=== PATIENT | female | born 1970 | race Caucasian/White ===

== ENCOUNTER 2024-11-03 13:40 | Outpatient (REF) | payer OTHER, SELFPAY ==
--- NOTE | ~2024-11-03 | XR_ITS ---
EXAMINATION: XR FOOT 3 OR MORE VIEWS LEFT HISTORY: M79.672 - Pain in left foot COMPARISON: Comparison is made to a prior outside images from [facility] dated 10/18/2024. FINDINGS: Three views of the left foot are submitted. Osseous mineralization is normal. Again seen is a nondisplaced intra-articular fracture of the base of the 5th metatarsal. No additional fracture is seen. There is no dislocation. There is moderate osteoarthritis and mild hallux valgus deformity of the 1st MTP joint. The soft tissues are unremarkable. XR/XR foot LT min 3V IMPRESSION: Nondisplaced intra-articular fracture of the base of the 5th metatarsal without change. Electronically signed by: Lucio Reyna MD 11/06/2024 07:22 AM EDT
== END 2024-11-03 13:41 | disposition home or self-care (01) ==
LOC: HO.HOSX 13:40
PROVIDERS: PCP Internal Medicine
DX: M79.672 Pain in left foot (principal); S92.352A Displaced fracture of fifth metatarsal bone, left foot, initial encounter for closed fracture; W22.8XXA Striking against or struck by other objects, initial encounter; Y93.H2 Activity, gardening and landscaping; Y92.007 Garden or yard of unspecified non-institutional (private) residence as the place of occurrence of the external cause; Y99.9 Unspecified external cause status; M65.4 Radial styloid tenosynovitis [de Quervain]
CPT/HCPCS: 73630; 99202

== ENCOUNTER 2024-11-03 13:40 | Outpatient (AMB) | payer OTHER, SELFPAY ==
--- OUTSIDE RECORDS SUMMARY | 2024-11-03 13:52 | XMS_ITS | Clinical Summary ---
Author Organization [facility] [address] [facility] Building Address [address] [place] [address] Phone Care Team Providers Care Avionics Integration Engineer Name Role Phone Rohit Mosley MD Primary Care Provider [phone] Allergies Active Allergy Reactions Criticality Noted Date Comments Sulfamethoxazole-Trimethoprim Hives 2023 Medications clotrimazole-b etamethasone (LOTRISONE) 1-0.05 % cream Apply small amout to rash twice a day Active cetirizine (ZyrTEC) 10 mg tablet Take 1 tablet (10 mg total) by mouth 1 (one) time each day. Active estradioL (ESTRACE) 0.01 % (0.1 mg/gram) vaginal cream Apply 1G PV nightly for 2 weeks and then 1-2 nights a week thereafter Active aspirin 81 mg EC tablet Take 1 tablet (81 mg total) by mouth 1 (one) time each day. Active PARoxetine (PAXIL) 10 mg tablet Take 1 tablet (10 mg total) by mouth 1 (one) time each day in the morning. Take 1 Tablet by mouth every morning for 180 days. - Oral 90 tablet 1 5 Active levothyroxine (SYNTHROID, LEVOTHROID) 100 mcg tablet Take 1 tablet (100 mcg total) by mouth 1 (one) time each day. 90 tablet 1 5 Active amLODIPine (NORVASC) 5 mg tablet TAKE 1 TABLET BY MOUTH EVERY DAY 90 tablet 5 Active fluticasone propionate (FLONASE) 50 mcg/actuation nasal spray Administer 2 sprays into each nostril 1 (one) time each day. Shake gently. Before first use, prime pump. After use, clean tip and replace cap. 16 g 5 5 10/04/19 26 Active atorvastatin (LIPITOR) 40 mg tablet Take 1 tablet (40 mg total) by mouth 1 (one) time each day. 90 tablet 1 5 Active atorvastatin (LIPITOR) 40 mg tablet Take 1 tablet (40 mg total) by mouth 1 (one) time each day. 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 10/03/2024 White matter lesion of central nervous system 03/14/20 24 10/03/2024 Tubular adenoma of colon 03/14/2024 Encounters Date Type Department Care Team Description 10/19/2024 1:14 PM EDT - 10/19/2024 11:59 PM EDT [facility] [address] [place], [place] [phone] Bilateral carotid artery stenosis Discharge Disposition: Home or Self Care 10/09/2024 12:10 PM EDT Lab Draw Station - [address] Mixed hyperlipidemia (Primary Dx); Screening for metabolic disorder; Jayda's disease 10/03/2024 11:15 AM EDT Office Visit Internal Medicine - [address] [phone] Daphne Duff NP Primary hypertension (Primary Dx); Other chronic sinusitis; Chronic seasonal allergic rhinitis due to pollen; Bilateral carotid artery stenosis; Chronic constipation; Tubular adenoma of colon; Thyroid nodule; Jayda's disease; Mixed hyperlipidemia; Anxiety; Screening for metabolic disorder; Chronic nonintractable headache, unspecified headache type from Last 3 Months Immunizations Name Administration Dates Next Due Influenza Quadravalent, MDCK , 0.5ml, preservative free (Flucelvax) 6mo and older 05/27/2023,02/08/2019 Influenza Quadravalent, MDCK , 0.5ml, with preservative (Flucelvax) 6mo and older 03/22/2017 Influenza trivalent, with pr eservative (Fluzone; Afluria) 6mo and older 03/23/2022 Influenza, Unspecified 05/19/2021 Tdap Tetanus diptheria acell ular pertussis (Boostrix; Adacel) 7yo and older 05/18/2016 Surgical History Surgery Date Site/Laterality Comments ENDOMETRIAL ABLATION 04/2016 PROCEDURE: NC ENDOMETRIAL ABLTJ THERMAL W/O HYSTEROSCOPIC GUID COLONOSCOPY 2018 PROCEDURE: HISTORICAL COLONOSCOPY Medical History Medical History Date Comments 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 DX:Jayda 's disease Anemia DX:Anemia Chronic sinusitis 10/05/2016 DX:Chronic sin usitis HLD (hyperlipidemia) 09/06/2017 DX:HLD (hyp erlipidemia) 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 12/22/2017 DX:White matter lesion of ce ntral nervous system Chronic constipation 09/13/2018 DX:Chronic constipation; COMMENT: Since her 30's Tubular adenoma of colon 02/08/2019 DX:Tubu lar adenoma of colon Hypertension 03/13/2024 DX:Hypertension Family History Medical History Relation Name Comments Breast cancer Aunt ma No Known Problems Brother Hypertension Father arthritis, psor iasis Colon cancer Maternal Grandfather No Known Problems Maternal Grandmother No Known Problems Mother No Known Problems Other No Known Problems Paternal Grandfather No Known Problems Paternal Grandmother No Known Problems Sister No Known Problems Uncle Blindness Neg Hx Glaucoma, Catar act, macular degeneration, strabismus Relation Name Status Comments Aunt ma Alive Brother Alive Father Alive Maternal Grandfather Maternal Grandmother Mother Alive Other Paternal Grandfather Paternal Grandmother Sister Uncle Social History Tobacco Use Types Packs/Day Years Used Date Smoking Tobacco: Never Smokeless Tobacco: Never Tobacco Cessation:Counseling Given: Not Answered Alcohol Use Standard Drinks/Week Comments No 0 (1 standard drink = 0.6 oz pur e alcohol) Housing Instability Answer Date Recorde d Are you worried that in the next 2 months you may not have stable housing? No 04/10/2024 Food Access & Nutrition Answer Date Rec orded Do you have access to a vari ety of food including fruits and vegetables? Yes 04/10/2024 Health Literacy Answer Date Recorded How often do you need to hav e someone help you when you read instructions, pamphlets, or other written material from your doctor or pharmacy? Never 04/10/2024 Caregiver: How often do you need to have someone help you when you read instructions, pamphlets, or other written material from your doctor or pharmacy? Not on file 04/10/2024 Financial Risk Answer Date Recorded How hard is it for you to pa y for the very basics like food, housing, medical care, and air conditioning / heating? Not very hard 04/10/2024 Transportation Answer Date Recorded Has the lack of transportati on kept you from meetings, work, or from getting things needed for daily living? No Has the lack of transportati on kept you from medical appointments or from getting medications? No 04/10/2024 Social Isolation Answer Date Recorded How often do you feel lonely or isolated from th ose around you? Never 04/10/2024 Food Risk Answer Date Recorded Within the past 12 months we worried whether our food would run out before we got money to buy more. Never true 04/10/2024 Within the past 12 months th e food we bought just didn't last and we didn't have money to get more. Never true 04/10/2024 Dependent Care Answer Date Recorded Do you need help finding or paying for care for your loved ones. For example, salesperson children's shoes or elderly care for an older adult? No 04/10/2024 Education Answer Date Recorded Do you think completing more education or training, like finishing a GED, going to college, or learning a trade, would be helpful for you? No 04/10/2024 Employment and Income Answer Date Recor ded During the last four weeks, have you been actively looking for work? No 04/10/2024 Living Situation Answer Date Recorded What is your living situation? 1 06/10/2023 Comments No Sex and Gender Information Value Date Recorded Sex Assigned at Not on file Legal Sex Female 8:15 AM EST Gender Identity Not on file Sexual Orientation Not on file Obstetrics History Last Filed Vital Signs Vital Sign Reading Time Taken Comments Blood Pressure 125/81 10/03/2024 11:03 AM EDT auto cuff Pulse 63 10/03/2024 11:03 AM EDT auto cuff Temperature 36.8 ??C (98.3 ??F) 10/03/2024 1 1:03 AM EDT Respiratory Rate - - Oxygen Saturation 97% 12/24/2023 1:0 0 PM EDT at rest, room air Inhaled Oxygen Concentration - - Weight 78.8 kg (173 lb 12.8 oz) 10/03/2024 11:03 AM EDT Height 168.9 cm (5' 6.5 ) 04/13/2024 9: 49 AM EST Body Mass Index 27.63 04/13/2024 9:49 AM EST Plan of Treatment Upcoming Encounters Date Type Department Care Team (Late st Contact Info) Description 11/10/2024 2:30 PM EDT Appointment Radiology Department - [address] [phone] 11/17/2024 11:30 AM EDT Appointment Radiology Department - [address] [phone] 11/21/2024 4:00 PM EDT Consult Vascular Surgery - [place] [address] [phone] Helga Sprague PA [address] [address] 01/12/2025 11:00 AM EDT Office Visit Endocrinology - [address] [phone] Althea Laura PA [address] [place] [phone] 04/09/2025 1:00 PM EST Office Visit Internal Medicine - [address] [place] [phone] Daphne Duff, CONTROL CHEMIST [address] [place] [address] Health Maintenance Due Date Last Done Comments Hepatitis B Vaccines (1 of 3 - 19+ 3-dose series) 1987 Pneumococcal Vaccine: 50+ Years (1 of 1 - PCV) 2018 Zoster Vaccines (1 of 2) 2018 Colorectal Cancer Screening: Colonoscopy 05/16/2022 HIV Screening 05/16/2022 COVID-19 Vaccine ( season) 2024 05/19/2021, 10/04/2020, 09/13/2020 Influenza Vaccine (Season Ended) 2025 05/27/2023, 03/23/2022, 05/19/2021, Additional history exists Social Influencers of Health Screening 04/10/2025 04/10/2024 Breast Cancer Screening 07/02/2025 07/02/19 24, 05/07/2022, 03/17/2021, Additional history exists Depression Screening 10/02/2025 10/02/2024 Hypertension/CHF/CAD Annual BMP Blood Test 10/09/2025 10/09/2024, 04/13/2024, 06/14/2023 Cervical Cancer Screening: HPV 01/28/2026 01/28/2021 DTaP,Tdap,and Td Vaccines (2 - Td or Tdap) 05/18/2026 05/18/2016 Cholesterol Screening (Lipid Panel) 10/09/2029 10/09/2024, 06/14/2023 Hepatitis C Screening Completed 02/16/2022 HIB Vaccines Aged Out No longer eligi ble based on patient's age to complete this topic HPV Vaccines Aged Out No longer eligi ble based on patient's age to complete this topic Hepatitis A Vaccines Aged Out No long er eligible based on patient's age to complete this topic IPV Vaccines Aged Out No longer eligi ble based on patient's age to complete this topic MMR Vaccines Aged Out No longer eligi ble based on patient's age to complete this topic Meningococcal ACWY Vaccine Aged Out N o longer eligible based on patient's age to complete this topic Meningococcal B Vaccine Aged Out No l onger eligible based on patient's age to complete this topic Pneumococcal Vaccine: Pediatrics (0 to 5 Years) and At-Risk Patients (6 to 64 Years) Aged Out No longer eligible based on patient's age to complete this topic RSV Immunization Patients Under 20 months Aged Out No longer eligible based on patient's age to complete this topic Varicella Vaccines Aged Out No longer eligible based on patient's age to complete this topic Procedures Procedure Name Priority Date/Time Associated Diagnosis Comments VAS US DUPLEX CAROTID BILATERAL Routine 10/19/2024 2:17 PM EDT Bilateral carotid artery stenosis CBC WITH AUTO DIFFERENTIAL Routine 10/09/2024 12:14 PM EDT Screening for metabolic disorder COMPREHENSIVE METABOLIC PANEL Routine 10/09/2024 12:14 PM EDT Screening for metabolic disorder THYROID STIMULATING HORMONE WITH REFLEX TO FREE T4 AND FREE T3 Routine 10/09/2024 12:14 PM EDT Jayda's disease HEMOGLOBIN A1C Routine 10/09/2024 12:14 PM EDT Screening for metabolic disorder CBC AND DIFFERENTIAL Routine 10/09/2024 12:14 PM EDT Screening for metabolic disorder LIPID PANEL WITH REFLEX TO DIRECT LDL Routine 10/09/2024 12:14 PM EDT Mixed hyperlipidemia DIAGNOSTIC MAMMOGRAPHY INCLUDING CAD BILATERAL Routine 07/02/2023 11:04 AM EST Changes in skin texture HM HEPATITIS C SCREENING Routine 02/16/2022 HM HPV Routine 01/28/2021 from Last 3 Months or Most Recently Relevant to Health Maintenance Results * Vascular US duplex carotid bilateral (10/19/2024 2:17 PM EDT) Anatomical Region Laterality Modality Vascular, Abdomen Ultrasound 10/19/2024 5:42 PM EDT Impressions 10/19/2024 5:52 PM EDT No evidence of hemodynamically significant internal carotid stenoses. ??No significant change compared with 03/24/2024. ??Patent vertebral arteries. POS - [id number] -------- FINAL REPORT -------- Dictated By: Pao Jackson Dictated Date: 10/19/2024 17:42 ET Assigned Physician: Pao Jackson Reviewed and Electronically Signed By: Pao Jackson Signed Date: 10/19/2024 17:52 ET Workstation ID: [id number] Transcribed By: Self Edit Transcribed Date: 10/19/2024 17:42 ET Narrative 10/19/2024 5:52 PM EDT EXAM: Ultrasound extracranial arteries. HISTORY: ??Follow-up bilateral carotid stenoses. COMPARISON: 03/24/2024 CAROTID ULTRASOUND FINDINGS: RIGHT: Peak external carotid artery: 165 cm/sec Peak vertebral: 65 cm/sec and antegrade Carotid artery morphology: No significant change in heterogeneous atherosclerotic plaques in the carotid bulb and proximal ICA. ??Degree of luminal narrowing is less than 50%. Peak systolic and diastolic velocity common carotid artery: 94/24 cm/sec Peak systolic and diastolic velocity internal carotid artery: 98/41 cm/sec compared with 89/42 cm/s previously Normal ICA/CCA peak systolic ratio. LEFT: Peak external carotid artery: 82 cm/sec Peak vertebral: 71 cm/sec and antegrade Carotid artery morphology: No significant change in heterogeneous plaque in the carotid bulb with shadowing which limits assessment of color Doppler flow. Peak systolic and diastolic velocity common carotid artery: 88/28 cm/sec Peak systolic and diastolic velocity internal carotid artery: 122/38 cm/sec compared with 123/38 cm/s previously Normal ICA/CCA peak systolic ratio. Any stenosis measurement is relative to the distal ICA diameters. Procedure Note Pao Jackson MD - 10/19/2024 EXAM: Ultrasound extracranial arteries. HISTORY: Follow-up bilateral carotid stenoses. COMPARISON: 03/24/2024 CAROTID ULTRASOUND FINDINGS: RIGHT: Peak external carotid artery: 165 cm/sec Peak vertebral: 65 cm/sec and antegrade Carotid artery morphology: No significant change in heterogeneousatherosclerotic plaques in the carotid bulb and proximal ICA. Degree ofluminal narrowing is less than 50%. Peak systolic and diastolic velocity common carotid artery: 94/24 cm/sec Peak systolic and diastolic velocity internal carotid artery: 98/41 cm/seccompared with 89/42 cm/s previously Normal ICA/CCA peak systolic ratio. LEFT: Peak external carotid artery: 82 cm/sec Peak vertebral: 71 cm/sec and antegrade Carotid artery morphology: No significant change in heterogeneous plaquein the carotid bulb with shadowing which limits assessment of colorDoppler flow. Peak systolic and diastolic velocity common carotid artery: 88/28 cm/sec Peak systolic and diastolic velocity internal carotid artery: 122/38cm/sec compared with 123/38 cm/s previously Normal ICA/CCA peak systolic ratio. Any stenosis measurement is relative to the distal ICA diameters. IMPRESSION: No evidence of hemodynamically significant internal carotid stenoses. Nosignificant change compared with 03/24/2024. Patent vertebral arteries. POS - [id number] -------- FINAL REPORT -------- Dictated By: Pao Jackson Dictated Date: 10/19/2024 17:42 ET Assigned Physician: Pao Jackson Reviewed and Electronically Signed By: Pao Jackson Signed Date: 10/19/2024 17:52 ET Workstation ID: [id number] Transcribed By: Self Edit Transcribed Date: 10/19/2024 17:42 ET us Daphne Love NP CV VASCULAR PROCEDURES Final Result * Thyroid stimulating hormone with reflex to free t4 and free t3 (10/09/2024 12:14 PM EDT) TSH 1.43 0.40 - 4.00 mcIU/mL LAB CHEMISTRY METHOD 10/09/2024 7:[address] [facility] Blood Venous blood specimen / Unknown Venipuncture / Unknown 10/09/2024 12:14 PM EDT 10/09/2024 12:14 PM EDT us Daphne Love NP LAB BLOOD ORDERABLES Final R esult [facility] [address] [place] [address], [place] [phone] * Lipid panel with reflex to direct LDL (10/09/2024 12:14 PM EDT) Cholesterol 132 0 - 200 mg/dL LAB CHEMISTRY METHOD 10/09/2024 6:[address] [facility] Triglycerides 79 0 - 150 mg/dL LAB CHEMISTRY METHOD 10/09/2024 6:[address] [facility] HDL 52 >=40 mg/dL LAB CHEMISTRY METHOD 10/09/2024 6:[address] [facility] LDL Calculated 64 0 - 100 mg/dL LAB CHEMISTRY METHOD 10/09/2024 6:[address] [facility] VLDL Cholesterol Darron 15.8 mg/dL LAB CHEMISTRY METHOD 10/09/2024 6:[address] [facility] Non HDL Chol. (LDL+VLDL) 80 <145 mg/dL LAB CHEMISTRY METHOD 10/09/2024 6:[address] [facility] Chol/HDL Ratio 2.5 0.0 - 4.4 LAB CHEMISTRY METHOD 10/09/2024 6:[address] [facility] Blood Venous blood specimen / Unknown Venipuncture / Unknown 10/09/2024 12:14 PM EDT 10/09/2024 12:14 PM EDT us Daphne Love CONTROL CHEMIST LAB BLOOD ORDERABLES Final R esult [facility] [address] [place] [address], [place] [phone] * (ABNORMAL) CBC auto differential (10/09/2024 12:14 PM EDT) WBC 6.1 4.8 - 10.8 K/mcL LAB HEMETOLOGY METHOD 10/09/2024 2:[address] [facility] RBC 3.80 3.80 - 4.80 M/mcL LAB HEMETOLOGY METHOD [facility] Hemoglobin 11.1(L) 11.5 - 16.0 g/dL LAB HEMETOLOGY METHOD 10/09/2024 2:26 PM [facility] Hematocrit 35.0 35.0 - 47.0 % LAB HEMETOLOGY METHOD 10/09/2024 2:26 [facility] MCV 92.3 79.0 - 98.0 FL LAB HEMETOLOGY METHOD 10/09/2024 2:26 PM [facility] MCH 29.3 27.0 - 32.0 pcg LAB HEMETOLOGY METHOD 10/09/2024 2:26 PM [facility] MCHC 31.7(L) 32.0 - 37.0 g/dL LAB HEMETOLOGY METHOD 10/09/2024 2:26 PM [facility] RDW 13.2 11.0 - 15.0 % LAB HEMETOLOGY METHOD 10/09/2024 2:26 PM [facility] Platelets 307 130 - 400 K/mcL LAB HEMETOLOGY METHOD 10/09/2024 2:26 PM [facility] MPV 9.0 7.0 - 11.0 FL LAB HEMETOLOGY METHOD 10/09/2024 2:26 PM [facility] NRBC 0.0 <1.0 % LAB HEMETOLOGY METHOD 10/09/2024 2:26 PM [facility] NRBC Absolute 0.00 <0.10 K/mcL LAB HEMETOLOGY METHOD 10/09/2024 2:26 PM [facility] Neutrophils Relative 48.4 % LAB HEMETOLOGY METHOD 10/09/2024 2:26 PM [facility] Lymphocytes Relative 37.5 % LAB HEMETOLOGY METHOD 10/09/2024 2:26 PM [facility] Monocytes Relative 10.2 % LAB HEMETOLOGY METHOD 10/09/2024 2:26 PM [facility] Eosinophils Relative 2.8 % LAB HEMETOLOGY METHOD 10/09/2024 2:26 PM [facility] Basophils Relative 0.8 % LAB HEMETOLOGY METHOD 10/09/2024 2:26 PM [facility] Immature Granulocytes Relative 0.3 % LAB HEMETOLOGY METHOD 10/09/2024 2:26 PM [facility] Neutrophils Absolute 2.92 1.50 - 7.00 K/mcL LAB HEMETOLOGY METHOD 10/09/2024 2:26 PM [facility] Lymphocytes Absolute 2.27 1.00 - 5.00 K/mcL LAB HEMETOLOGY METHOD 10/09/2024 2:26 PM [facility] Monocytes Absolute 0.62 0.20 - 1.00 K/mcL LAB HEMETOLOGY METHOD 10/09/2024 2:26 PM [facility] Eosinophils Absolute 0.17 0.00 - 0.50 K/mcL LAB HEMETOLOGY METHOD 10/09/2024 2:26 PM [facility] Basophils Absolute 0.05 0.00 - 0.20 K/mcL LAB HEMETOLOGY METHOD 10/09/2024 2:26 PM [facility] Immature Granulocytes Absolute 0.02 0.00 - 0.03 K/mcL LAB HEMETOLOGY METHOD 10/09/2024 2:26 PM [facility] Blood Venous blood specimen / Unknown Venipuncture / Unknown 10/09/2024 12:14 PM EDT 10/09/2024 12:14 PM EDT Daphne Love NP LAB BLOOD ORDERABLES Final R esult Performing Organization Address City/[facility]/ZIP Co de Phone Number [facility] [address] [place] [address], [place] [phone] * Hemoglobin A1c (10/09/2024 12:14 PM EDT) [facility] Hemoglobin A1C 6.2 <6.5 % LAB CHEMISTRY METHOD 10/09/2024 9:[address] [facility] Mean Bld Glu Estim. 131 mg/dL LAB CHEMISTRY METHOD 10/09/2024 9:[address] [facility] Blood Venous blood specimen / Unknown Venipuncture / Unknown 10/09/2024 12:14 PM EDT 10/09/2024 12:14 PM EDT Daphne Love NP LAB BLOOD ORDERABLES Final R esult Performing Organization Address [facility]/ZIP Co de Phone Number [facility] [address] [place] [address], [place] [phone] * Comprehensive metabolic panel (10/09/2024 12:14 PM EDT) [facility] Sodium 140 133 - 145 mmol/L LAB CHEMISTRY METHOD 10/09/2024 6:[address] [facility] Potassium 4.2 3.5 - 5.5 mmol/L LAB CHEMISTRY METHOD 10/09/2024 6:[address] [facility] Chloride 106 96 - 110 mmol/L LAB CHEMISTRY METHOD 10/09/2024 6:[address] [facility] CO2 29 21 - 32 mmol/L LAB CHEMISTRY METHOD 10/09/2024 6:[address] [facility] Anion Gap 5 3 - 11 LAB CHEMISTRY METHOD 10/09/2024 6:[address] [facility] Glucose 90 70 - 100 mg/dL LAB CHEMISTRY METHOD 10/09/2024 6:[address] [facility] BUN 13 5 - 25 mg/dL LAB CHEMISTRY METHOD 10/09/2024 6:39 PM [facility] Creatinine 0.68 0.50 - 1.10 mg/dL LAB CHEMISTRY METHOD 10/09/2024 6:39 PM [facility] eGFR 102 >=60 mL/min/1. 73m2 LAB CHEMISTRY METHOD 10/09/2024 6:39 PM [facility] Comment:Calculation based on the??Chronic Kidney Disease Epidemiology Collaboration (CKD-EPI) equation refit??without adjustment for race. BUN/Creatinine Ratio 19.1 LAB CHEMISTRY METHOD 10/09/2024 6:39 PM [facility] Calcium 9.0 8.5 - 10.5 mg/dL LAB CHEMISTRY METHOD 10/09/2024 6:39 PM [facility] AST (SGOT) 22 10 - 42 unit/L LAB CHEMISTRY METHOD 10/09/2024 6:39 PM [facility] ALT (SGPT) 31 10 - 60 unit/L LAB CHEMISTRY METHOD 10/09/2024 6:39 PM [facility] Alkaline Phosphatase 78 42 - 121 unit/L LAB CHEMISTRY METHOD 10/09/2024 6:39 PM [facility] Total Protein 7.0 6.0 - 8.0 g/dL LAB CHEMISTRY METHOD 10/09/2024 6:39 PM [facility] Albumin 3.7 3.2 - 5.0 g/dL LAB CHEMISTRY METHOD 10/09/2024 6:39 PM [facility] Total Bilirubin 0.4 0.0 - 1.4 mg/dL LAB CHEMISTRY METHOD 10/09/2024 6:39 PM [facility] Blood Venous blood specimen / Unknown Venipuncture / Unknown 10/09/2024 12:14 PM EDT 10/09/2024 12:14 PM EDT us Daphne Love NP LAB BLOOD ORDERABLES Final R esult [facility] [address] [place] [address], * DIAGNOSTIC MAMMOGRAPHY INCLUDING CAD BILATERAL (07/02/2023 11:04 AM EST) Anatomical Region Laterality Modality Mammography 04/12/2023 1:58 PM EST Narrative 07/02/2023 11:15 AM EST This is a summary report. The complete report is available in the patient's medical record. If you cannot access the medical record, please contact the sending organization for a detailed fax or copy. Bilateral diagnostic digital mammogram; Left Breast Ultrasound History: Left breast skin changes for roughly a year-nontender. Technique/Findings: Full field digital tomosynthesis mammography, reviewed with CAD and compared to previous mammograms dating back to 12/11/2014 with most recent of 05/14/2022.. The breast tissue is heterogeneously dense, limiting sensitivity. No suspicious mass, architectural distortion or suspicious calcifications are identified. ??No mammographic finding is seen to correspond to the skin marker inferior to the left nipple. Ultrasound evaluation of the visible skin lesion in the lower outer left breast at the 5 o'clock position at the edge of the areola was performed. ??There is no cyst or solid mass. IMPRESSION: : Dense breast tissue, limiting the sensitivity of mammography. No mammographic evidence of malignancy. ??Unremarkable left breast ultrasound. BIRADS 1-Negative; N. 5 year breast cancer risk assessment 1.3 % Lifetime breast cancer risk assessment 9.1 % Breast cancer risk category Low (<15%) Procedure Note Jordana Jones MD - 01/24/2024 This is a summary report. The complete report is available in thepatient's medical record. If you cannot access the medical record, pleasecontact the sending organization for a detailed fax or copy. Bilateral diagnostic digital mammogram; Left Breast Ultrasound History: Left breast skin changes for roughly a year-nontender. Technique/Findings: Full field digital tomosynthesis mammography, reviewedwith CAD and compared to previous mammograms dating back to 12/11/2014 withmost recent of 05/14/2022.. The breast tissue is heterogeneously dense,limiting sensitivity. No suspicious mass, architectural distortion orsuspicious calcifications are identified. No mammographic finding is seento correspond to the skin marker inferior to the left nipple. Ultrasound evaluation of the visible skin lesion in the lower outer leftbreast at the 5 o'clock position at the edge of the areola wasperformed. There is no cyst or solid mass. IMPRESSION: : Dense breast tissue, limiting the sensitivity of mammography. Nomammographic evidence of malignancy. Unremarkable left breastultrasound. BIRADS 1-Negative; N. 5 year breast cancer risk assessment 1.3 % Lifetime breast cancer risk assessment 9.1 % Breast cancer risk category Low (<15%) Result [facility] Jessica DAVIS IMG BI PROCEDURES Final Result * Hepatitis C Screening (02/16/2022) Hepatitis C Screening abstracted Historical Provider HEALTH MAINTENANCE Final Result * Cervical Cancer Screening: HPV (01/28/2021) Cervical Cancer Screening: HPV negative abstracted Historical Provider HEALTH MAINTENANCE Final Result from Last 3 Months or Most Recently Relevant to Health Maintenance Insurance [facility] Care Teams Avionics Integration Engineer Relationship Specialty Start Date End Date Rohit Mosley MD [address] [place] [id number] PCP - General Internal Medicine 04/28/16
--- NOTE | 2024-11-03 14:17 | A.OFFVIS_ITS ---
Vital Signs 11/03/24 14:19 Height 5 ft 7 in Weight 165 lb BMI 25.8 Intake Visit Reasons: FC-Lt foot nondisplaced 5th metatarsal base fx Intake Note: Kathy 54 yr old female presents today for her left foot injury. States she Slipped on stairs unto a wheel barrel DOI 10/08/24. Seen at urgent care 4 days later where xrays were taken and a fracture was confirmed. She was given crutches and a post op shoe. Currently states she is walking in her heel so is not feeling and pain. Patient mentioned she is having mild numbness and tingling in her feet. 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 The onset of symptoms included severe pain and necessitated a visit to the emergency department, where an x-ray confirmed the absence of fractures. Following the de Quervain injection, the patient reports partial relief with pain levels reducing significantly, though they remain problematic with specific thumb movements, recording a pain intensity of 6.5-7 with thumb flexion and deviation. The patient consistently applies a brace during activity, noticing limited yet consistent benefits. Occupational therapy was discussed as a possible conservative approach before further invasive interventions. The patient denies any accompanying numbness or tingling. Review of Systems - Musculoskeletal: Reports continued pain in the right wrist area, particularly with movements involving thumb flexion and ulnar deviation. Denies numbness or tingling. Systems reviewed and are negative except as per HPI and below Physical Exam - Musculoskeletal- - Mildly positive Sully test on the right. Very mild tenderness to palpation of the right radial styloid Results Procedure Plan The management plan involves engaging in occupational therapy to further address symptoms of right-sided De Quervain's Tenosynovitis, as initial relief was observed with the previous corticosteroid injection. Therapy will concentrate on enhancing functional use and reducing pain. Should therapy prove inadequate, the consideration of another corticosteroid injection remains an option. Continuation of brace use during activity is recommended for support. Evaluation will continue based on the patient's progress with therapy. Patient was informed and verbally consented to the use of an ambient scribe for clinic note documentation during this visit. Discussion Notes I discussed with the patient the current status of her right-sided De Quervain's Tenosynovitis, noting the partial improvement following the initial steroid injection. The importance of addressing residual symptoms through occupational therapy was emphasized, with the understanding that this conservative treatment could potentially suffice to alleviate pain and improve functionality. We reviewed the possibility of a second injection should therapy yield suboptimal results. I highlighted the importance of using a wrist brace during physically demanding activities as an adjunct support. The patient understood and agreed with the proposed plan, expressing her readiness to contact the occupational therapy department to arrange for an initial session. Patient Instructions - Call the occupational therapy department to schedule an appointment. - Use your brace consistently during active sports or physical activities. - Monitor your symptoms and keep track of any changes or improvements. - Follow up with me if therapy does not provide adequate relief for reassessment and potential second injection consideration. - Seek medical attention sooner if symptoms worsen significantly. Orders: Orders XR foot LT min 3V Today M79.672 - Pain in left foot Coding Level of Care Code New Pt Level 3 (00955) Diagnoses Fracture of base of fifth metatarsal bone of left foot S92.352A CPT Codes Fracture Care - Fracture Billing Code: Fracture Billing Code ([id number])
[2024-11-03 14:19] VITALS: BMI 25.8
== END 2024-11-03 14:50 | disposition home or self-care (01) ==
LOC: HO.HOS 13:41
PROVIDERS: PCP Internal Medicine
DX: S92.352A Displaced fracture of fifth metatarsal bone, left foot, initial encounter for closed fracture (principal)
CPT/HCPCS: 99203

== ENCOUNTER → 2024-11-03 14:06 | Outpatient (BNV) | payer OTHER, SELFPAY | PROVIDERS: PCP Internal Medicine; Visit Provider Radiology Diagnostic Radiology | DX: S92.355A Nondisplaced fracture of fifth metatarsal bone, left foot, initial encounter for closed fracture (principal) | CPT/HCPCS: 73630 ==

== ENCOUNTER 2024-11-24 08:46 | Outpatient (REF) | payer OTHER, SELFPAY ==
--- NOTE | ~2024-11-24 | XR_ITS ---
CLINICAL HISTORY: M79.672 - Pain in left foot 3 view left foot Comparison: 11/03/2024 Findings: There is minimal healing of the 5th metatarsal base fracture. Bones otherwise intact. No dislocations. There is hallux valgus with great toe metatarsophalangeal joint osteoarthritis No ankle effusion. No radiopaque foreign body. IMPRESSION: 1. Minimal healing of 5th metatarsal fracture This document has been electronically signed by: Tree Coffman MD on 11/25/2024 08:56:05
--- OUTSIDE RECORDS SUMMARY | 2024-11-27 09:10 | XMS_ITS | Clinical Summary ---
Author Organization [facility] [address] [facility] Building Address [address] [place] [phone] Phone Care Team Providers Care Process Analyst Name Role Phone Rohit Mosley MD Primary Care Provider [phone] Allergies Active Allergy Reactions Criticality Noted Date Comments Sulfamethoxazole-Trimethoprim Hives 2023 Medications clotrimazole-be tamethasone (LOTRISONE) 1-0.05 % cream Apply small amout [...] each day. 90 tablet 1 5 Active Active Problems Problem Noted Date Diagnosed Date [...] Encounters Date Type Department Care Team Description 11/21/2024 4:00 PM EDT Consult Vascular Surgery - [address] [phone] Helga Sprague PA Bilateral carotid artery stenosis 11/17/2024 11:22 AM EDT - 11/17/2024 11:59 PM EDT Hospital Encounter Radiology Department - [address] [address] Chronic nonintractable headache, unspecified headache type Discharge Disposition: Home or Self Care 11/10/2024 1:54 PM EDT - 11/10/2024 11:59 PM EDT Hospital Encounter Radiology Department - [address] [phone] Encounter for screening mammogram for breast cancer Discharge Disposition: Home or Self Care 10/19/2024 1:14 PM EDT - 10/19/2024 11:59 PM EDT Hospital Encounter Ultrasound - [facility] [address] [place] [phone] Bilateral carotid artery stenosis Discharge Disposition: Home or Self Care 10/09/2024 12:10 PM EDT Lab [facility] [place] Mixed hyperlipidemia (Primary Dx); 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 For example, child care provider or elderly care for an older adult? [...] Sexual Orientation Not on file Obstetrics History Para Term AB IAB SAB Ectopic Multiple Livin g Live Births 0 0 0 0 Last Filed Vital Signs Vital Sign Reading Time Taken Comments Blood Pressure 145/73 11/21/2024 3:49 PM EDT Pulse 63 11/21/2024 3:49 PM EDT Temperature 36.8 C (98.3 F) 10/03/2024 11:03 AM EDT Respiratory Rate - - Oxygen Saturation 97% 12/24/2023 1:0 0 PM EDT at rest, room air Inhaled Oxygen Concentration - - Weight 80.6 kg (177 lb 9.6 oz) 11/21/2024 3:49 PM EDT Height 170.2 cm (5' 7 ) 11/21/2024 3:49 PM EDT Body Mass Index 27.82 11/21/2024 3:49 PM EDT Plan of Treatment Upcoming Encounters Date Type Department Care Team (Late st Contact Info) Description 01/12/2025 11:00 AM EDT Office Visit Endocrinology - [address] [phone] Althea Laura PA [address] [place] [address] 04/09/2025 1:00 PM EST Office Visit Internal Medicine - [facility] [address] [place] [address] Daphne Duff, SUPERVISOR COMPOSING ROOM [address] [place] [address] 10/10/2025 10:00 AM EDT Ancillary Procedure [facility] - [address] [place] [phone] 11/22/2025 4:00 PM EDT Office Visit Vascular Surgery - [place] [address] [place] [address] Helga Sprague PA [address] [place] [address] Health Maintenance Due Date Last Done Comments [...] Social Influencers of Health Screening 04/10/2025 04/10/2024 Depression Screening 10/02/2025 10/02/2024 Hypertension/CHF/CAD Annual BMP Blood Test 10/09/2025 10/09/2024, 04/13/2024, 06/14/2023 Cervical Cancer Screening: HPV 01/28/2026 01/28/2021 DTaP,Tdap,and Td Vaccines (2 - Td or Tdap) 05/18/2026 05/18/2016 Breast Cancer Screening 11/10/2026 11/11/19 25, 07/02/2023, 05/07/2022, Additional history exists Cholesterol Screening (Lipid Panel) 10/09/2029 10/09/2024, 06/14/2023 [...] Procedure Name Priority Date/Time Associated Diagnosis Comments MR BRAIN WO AND W CONTRAST Routine 11/17/2024 12:20 PM EDT Chronic nonintractable headache, unspecified headache type MG MAMMO DIGITAL SCREENING W SUKUMAR BILAT Routine 11/10/2024 2:08 PM EDT Encounter for screening mammogram for breast cancer VAS US DUPLEX CAROTID BILATERAL Routine 10/19/2024 [...] Routine 10/09/2024 12:14 PM EDT Mixed hyperlipidemia HEPATITIS C SCREENING Routine 02/16/2022 HM HPV Routine 01/28/2021 from Last 3 Months or Most Recently Relevant to Health Maintenance Results * MR Brain wo and w Contrast (11/17/2024 12:20 PM EDT) Anatomical Region Laterality Modality Head and Neck Magnetic Resonan ce 11/17/2024 4:03 PM EDT Impressions 11/19/2024 6:17 PM EDT Impression: 1. No acute intracranial process. No abnormal intracranial enhancement. 2. 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 No evidence of hydrocephalus -------- FINAL REPORT -------- Dictated By: González Akhtar Dictated Date: 11/17/2024 16:03 ET Assigned Physician: González Akhtar Reviewed and Electronically Signed By: González Akhtar Signed Date: 11/19/2024 18:17 ET Workstation ID: [id number] Transcribed By: Self Edit Transcribed Date: 11/17/2024 16:03 ET Narrative 11/19/2024 6:17 PM EDT MRI BRAIN WITH AND WITHOUT CONTRAST Clinical [...] white matter hyperintense lesions are present throughout the brain parenchyma which likely represent areas of microvascular ischemic changes. The craniocervical junction is normal. The ventricular system is normal in size and morphology. The basilar cisterns are normal. Incidentally noted is a 0.8 x 0.6 cm pineal gland cyst with thin smooth wall enhancement. There is no evidence of abnormal intracranial enhancement. The orbits and globes are within normal limits. Minimal mucosal thickening within the paranasal sinuses. Trace fluid within the left mastoids. Procedure Note González Akhtar MD - 11/19/2024 MRI BRAIN WITH AND WITHOUT CONTRAST Clinical Statement: Brain mass or lesion headaches, white lesions on brain Comparison: MRI of the brain from 10/16/2016 Technique: Multiplanar, multisequence MR images of the brain wereobtained prior to and following the uneventful intravenous administrationof 15 mL of gadolinium Findings: There is no evidence of diffusion restriction. No intracranialhemorrhage. Mild white matter hyperintensities within the periventricularand supraventricular region consistent with microvascular ischemicchanges. A few scattered white matter hyperintense lesions are presentthroughout the brain parenchyma which likely represent areas ofmicrovascular ischemic changes. The craniocervical junction is normal.The ventricular system is normal in size and morphology. The basilarcisterns are normal. Incidentally noted is a 0.8 x 0.6 cm pineal glandcyst with thin smooth wall enhancement. There is no evidence of abnormalintracranial enhancement. The orbits and globes are within normal limits.Minimal mucosal thickening within the paranasal sinuses. Trace fluidwithin the left mastoids. IMPRESSION: Impression: 1. No acute intracranial process. No abnormal intracranial enhancement. 2. Incidentally noted is a 0.8 cm pineal gland cyst with thin smooth wallenhancement. No evidence of hydrocephalus -------- FINAL REPORT -------- Dictated By: González Akhtar Dictated Date: 11/17/2024 16:03 ET Assigned Physician: González Akhtar Reviewed and Electronically Signed By: González Akhtar Signed Date: 11/19/2024 18:17 ET Workstation ID: [id number] Transcribed By: Self Edit Transcribed Date: 11/17/2024 16:03 ET Daphne Love NP IMG MRI PROCEDURES Final Res ult * MG Mammo Digital Screening w Sukumar bilat (11/10/2024 2:08 PM EDT) Anatomical Region Laterality Modality Breast Bilateral Mammography 11/11/2024 4:08 PM EDT Impressions 11/11/2024 4:11 PM EDT No mammographic evidence of malignancy. BI-RADS CATEGORY: 1 - NEGATIVE RECOMMENDATION: Screening bilateral mammogram is recommended in 1 year. Mammo Location: [facility], [address] [place] [address], [id number], . -------- FINAL REPORT -------- Dictated By: Aleyda Reese Dictated Date: 11/11/2024 16:08 ET Assigned Physician: Aleyda Reese Reviewed and Electronically Signed By: Aleyda Reese Signed Date: 11/11/2024 16:11 ET Workstation ID: [id number] Transcribed By: Self Edit Transcribed Date: 11/11/2024 16:08 ET Narrative 11/11/2024 4:11 PM EDT CLINICAL: 54 years old, Female, routine annual exam. COMPARISON: Prior mammograms, latest from 07/02/2023. TECHNIQUE: Bilateral MLO and CC views were obtained digitally with 2-D C views and 3-D mammogram (digital breast tomosynthesis). Computer-aided detection was utilized in evaluation of this exam (CAD). FINDINGS: There is no evidence of suspicious mass or architectural distortion. No worrisome calcifications are evident. There has been no significant change from prior exam(s). BREAST DENSITY: C - The breasts are heterogeneously dense which may obscure small masses. Procedure Note Aleyda Reese MD - 11/11/2024 CLINICAL: 54 years old, Female, routine annual exam. COMPARISON: Prior mammograms, latest from 07/02/2023. TECHNIQUE: Bilateral MLO and CC views were obtained digitally with 2-D Cviews and 3-D mammogram (digital breast tomosynthesis). Computer-aideddetection was utilized in evaluation of this exam (CAD). FINDINGS: There is no evidence of suspicious mass or architectural distortion. Noworrisome calcifications are evident. There has been no significantchange from prior exam(s). BREAST DENSITY: C - The breasts are heterogeneously dense which mayobscure small masses. IMPRESSION: No mammographic evidence of malignancy. BI-RADS CATEGORY: 1 - NEGATIVE RECOMMENDATION: Screening bilateral mammogram is recommended in 1 year. Mammo Location: [facility], [address] [place] [address], [id number], . -------- FINAL REPORT -------- Dictated By: Aleyda Reese Dictated Date: 11/11/2024 16:08 ET Assigned Physician: Aleyda Reese Reviewed and Electronically Signed By: Aleyda Reese Signed Date: 11/11/2024 16:11 ET Workstation ID: [id number] Transcribed By: Self Edit Transcribed Date: 11/11/2024 16:08 ET us Rohit Mosley MD IMG BI PROCEDURES Final R esult * Vascular US duplex carotid bilateral (10/19/2024 2:17 PM EDT) Anatomical Region Laterality Modality Vascular, Abdomen Ultrasound 10/19/2024 5:42 PM EDT Impressions 10/19/2024 5:52 PM EDT No evidence of hemodynamically significant internal carotid stenoses. No significant change compared with 03/24/2024. Patent vertebral arteries. POS - [id number] -------- FINAL REPORT -------- Dictated By: Pao Jackson Dictated Date: 10/19/2024 17:42 ET Assigned Physician: Pao Jackson Reviewed and Electronically Signed By: Pao Jackson Signed Date: 10/19/2024 17:52 ET Workstation ID: [id number] Transcribed By: Self Edit Transcribed Date: 10/19/2024 17:42 ET Narrative 10/19/2024 5:52 PM EDT EXAM: Ultrasound extracranial arteries. HISTORY: Follow-up bilateral [...] with 03/24/2024. Patent vertebral arteries. POS - [id number] -------- FINAL REPORT -------- Dictated By: Pao Jackson Dictated Date: 10/19/2024 17:42 ET Assigned Physician: Pao Jackson Reviewed and Electronically Signed By: Pao Jackson Signed Date: 10/19/2024 17:52 ET Workstation ID: [id number] Transcribed By: Self Edit Transcribed Date: 10/19/2024 17:42 ET us Daphne Love NP CV VASCULAR PROCEDURES Final Result * Thyroid stimulating hormone with reflex to free t4 and free t3 (10/09/2024 12:14 PM EDT) [facility] TSH 1.43 0.40 - 4.00 mcIU/mL LAB CHEMISTRY METHOD 10/09/2024 7:00 PM EDT [facility] Blood Venous blood specimen / Unknown Venipuncture / Unknown 10/09/2024 12:14 PM EDT 10/09/2024 12:14 PM EDT Daphne Love NP LAB BLOOD ORDERABLES Final R esult [facility] [address] [place] [address], [place] [phone] * Lipid panel with reflex to direct LDL (10/09/2024 12:14 PM EDT) [facility] Cholesterol 132 0 - 200 mg/dL LAB CHEMISTRY METHOD 10/09/2024 6:32 PM EDT [facility] Triglycerides 79 0 - 150 mg/dL LAB CHEMISTRY METHOD 10/09/2024 6:32 PM EDT [facility] HDL 52 >=40 mg/dL LAB CHEMISTRY METHOD 10/09/2024 6:32 PM EDT [facility] LDL Calculated 64 0 - 100 mg/dL LAB CHEMISTRY METHOD 10/09/2024 6:32 PM EDT [facility] VLDL Cholesterol Darron 15.8 mg/dL LAB CHEMISTRY METHOD 10/09/2024 6:32 PM EDT [facility] Non HDL Chol. (LDL+VLDL) 80 <145 mg/dL LAB CHEMISTRY METHOD 10/09/2024 6:32 PM EDT [facility] Chol/HDL Ratio 2.5 0.0 - 4.4 LAB CHEMISTRY METHOD 10/09/2024 6:32 PM EDT [facility] Blood Venous blood specimen / Unknown Venipuncture / Unknown 10/09/2024 12:14 PM EDT 10/09/2024 12:14 PM EDT Daphne Love SUPERVISOR COMPOSING ROOM LAB BLOOD ORDERABLES Final R esult [facility] [address] [place] [address], * (ABNORMAL) CBC auto differential (10/09/2024 12:14 PM EDT) WBC 6.1 4.8 - 10.8 K/mcL LAB HEMETOLOGY METHOD 10/09/2024 2:26 PM EDT [facility] RBC 3.80 3.80 - 4.80 M/mcL LAB HEMETOLOGY METHOD 10/09/2024 2:26 PM EDT [facility] Hemoglobin 11.1(L) 11.5 - 16.0 g/dL LAB HEMETOLOGY METHOD 10/09/2024 2:26 PM EDT [facility] Hematocrit 35.0 35.0 - 47.0 % LAB HEMETOLOGY METHOD 10/09/2024 2:26 PM EDT [facility] MCV 92.3 79.0 - 98.0 FL LAB HEMETOLOGY METHOD 10/09/2024 2:26 PM EDT [facility] MCH 29.3 27.0 - 32.0 pcg LAB HEMETOLOGY METHOD 10/09/2024 2:26 PM T [facility] MCHC 31.7(L) 32.0 - 37.0 g/dL LAB HEMETOLOGY METHOD 10/09/2024 2:26 PM [facility] RDW 13.2 11.0 - 15.0 % LAB HEMETOLOGY METHOD 10/09/2024 2:26 PM [facility] Platelets 307 130 - 400 K/mcL LAB HEMETOLOGY METHOD 10/09/2024 2:26 PM [facility] MPV 9.0 7.0 - 11.0 FL LAB HEMETOLOGY METHOD 10/09/2024 2:26 PM [facility] NRBC 0.0 <1.0 % LAB HEMETOLOGY METHOD 10/09/2024 2:26 PM [facility] NRBC Absolute 0.00 <0.10 K/mcL LAB HEMETOLOGY METHOD 10/09/2024 2:26 PM [facility] Neutrophils Relative 48.4 % LAB HEMETOLOGY METHOD 10/09/2024 2:26 PM [facility] Lymphocytes Relative 37.5 % LAB HEMETOLOGY METHOD 10/09/2024 2:26 PM [facility] Monocytes Relative 10.2 % LAB HEMETOLOGY METHOD 10/09/2024 2:26 PM [facility] Eosinophils Relative 2.8 % LAB HEMETOLOGY METHOD 10/09/2024 2:26 PM [facility] Basophils Relative 0.8 % LAB HEMETOLOGY METHOD 10/09/2024 2:26 PM [facility] Immature Granulocytes Relative 0.3 % LAB HEMETOLOGY METHOD 10/09/2024 2:26 PM [facility] Neutrophils Absolute 2.92 1.50 - 7.00 K/mcL LAB HEMETOLOGY METHOD 10/09/2024 2:26 PM [facility] Lymphocytes Absolute 2.27 1.00 - 5.00 K/mcL LAB HEMETOLOGY METHOD 10/09/2024 2:26 PM EDT [facility] Monocytes Absolute 0.62 0.20 - 1.00 K/mcL LAB HEMETOLOGY METHOD 10/09/2024 2:26 PM EDT [facility] Eosinophils Absolute 0.17 0.00 - 0.50 K/[facility] LAB HEMETOLOGY METHOD 10/09/2024 2:26 PM EDT [facility] Basophils Absolute 0.05 0.00 - 0.20 [facility] LAB HEMETOLOGY METHOD 10/09/2024 2:26 PM EDT [facility] Immature Granulocytes Absolute 0.02 0.00 - 0.03 K/[facility] LAB HEMETOLOGY METHOD 10/09/2024 2:26 PM EDT [facility] Blood Venous blood specimen / Unknown Venipuncture / Unknown 10/09/2024 12:14 PM EDT 10/09/2024 12:14 PM EDT us Daphne Love SUPERVISOR COMPOSING ROOM LAB BLOOD ORDERABLES Final R esult [facility] [address] [place] [address], * Hemoglobin A1c (10/09/2024 12:14 PM EDT) Hemoglobin A1C 6.2 <6.5 % LAB CHEMISTRY METHOD 10/09/2024 9:09 PM EDT [facility] Mean Bld Glu Estim. 131 mg/dL LAB CHEMISTRY METHOD 10/09/2024 9:09 PM EDT [facility] Blood Venous blood specimen / Unknown Venipuncture / Unknown 10/09/2024 12:14 PM EDT 10/09/2024 12:14 PM EDT us Daphne Love SUPERVISOR COMPOSING ROOM LAB BLOOD ORDERABLES Final R esult [facility] [address] [place] [address], [place] [phone] * Comprehensive metabolic panel (10/09/2024 12:14 PM EDT) Sodium 140 133 - 145 mmol/L LAB CHEMISTRY METHOD 10/09/2024 6:39 PM [facility] Potassium 4.2 3.5 - 5.5 mmol/L LAB CHEMISTRY METHOD 10/09/2024 6:39 PM [facility] Chloride 106 96 - 110 mmol/L LAB CHEMISTRY METHOD 10/09/2024 6:39 PM [facility] CO2 29 21 - 32 mmol/L LAB CHEMISTRY METHOD 10/09/2024 6:39 PM [facility] Anion Gap 5 3 - 11 LAB CHEMISTRY METHOD 10/09/2024 6:39 PM [facility] Glucose 90 70 - 100 mg/dL LAB CHEMISTRY METHOD 10/09/2024 6:39 PM [facility] BUN 13 5 - 25 mg/dL LAB CHEMISTRY METHOD 10/09/2024 6:39 PM [facility] Creatinine 0.68 0.50 - 1.10 mg/dL LAB CHEMISTRY METHOD 10/09/2024 6:39 PM [facility] eGFR 102 >=60 mL/min/1. 73m2 LAB CHEMISTRY METHOD 10/09/2024 6:39 PM [facility] Comment:Calculation based on the Chronic Kidney Disease Epidemiology Collaboration (CKD-EPI) equation refit without adjustment for race. BUN/Creatinine Ratio 19.1 LAB CHEMISTRY METHOD 10/09/2024 6:39 PM [facility] Calcium 9.0 8.5 - 10.5 mg/dL LAB CHEMISTRY METHOD 10/09/2024 6:39 PM [facility] AST (SGOT) 22 10 - 42 unit/L LAB CHEMISTRY METHOD 10/09/2024 6:39 PM EDT [facility] ALT (SGPT) 31 10 - 60 unit/L LAB CHEMISTRY METHOD 10/09/2024 6:39 PM EDT [facility] Alkaline Phosphatase 78 42 - 121 unit/L LAB CHEMISTRY METHOD 10/09/2024 6:39 PM EDT [facility] Total Protein 7.0 6.0 - 8.0 g/dL LAB CHEMISTRY METHOD 10/09/2024 6:39 PM EDT [facility] Albumin 3.7 3.2 - 5.0 g/dL LAB CHEMISTRY METHOD 10/09/2024 6:39 PM EDT [facility] Total Bilirubin 0.4 0.0 - 1.4 mg/dL LAB CHEMISTRY METHOD 10/09/2024 6:39 PM EDT [facility] Blood Venous blood specimen / Unknown Venipuncture / Unknown 10/09/2024 12:14 PM EDT 10/09/2024 12:14 PM EDT Daphne Love SUPER[employer]POSING RO[employer] LAB BLOOD ORDERABLES Final R esult [facility] [address] [place] [address], * Hepatitis C Screening (02/16/2022) Pathologist [facility] Hepatitis C Screening abstracted Historical Provider HEALTH MAINTENANCE Final Result * Cervical Cancer Screening: HPV (01/28/2021) Pathologist [facility] Cervical Cancer Screening: HPV negative abstracted Historical Provider HEALTH MAINTENANCE Final Result from Last 3 Months or Most Recently Relevant to Health Maintenance Insurance [employer] Care Teams Process Analyst Relationship Specialty Start Date End Date Rohit Mosley MD [address] [place] [id number] PCP - General Internal Medicine 04/28/16
== END 2024-11-24 08:47 | disposition home or self-care (01) ==
LOC: HO.HOSX 08:46
DX: M79.672 Pain in left foot (principal); S92.352A Displaced fracture of fifth metatarsal bone, left foot, initial encounter for closed fracture
CPT/HCPCS: 73630; 99212

== ENCOUNTER 2024-11-24 14:36 | Outpatient (AMB) | payer OTHER, SELFPAY ==
--- OUTSIDE RECORDS SUMMARY | 2024-11-21 16:00 | XMS_ITS | Encounter Summary ---
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 Name Role Phone Rohit Mosley MD Primary Care Provider [phone] Reason for Referral * Imaging (Routine) - Pending Review Specialty Diagnoses / Procedures Referred By Elen hall Referred To Contact Diagnoses Bilateral carotid artery stenosis Procedures Vascular US duplex carotid bilateral Helga Sprague PA [address] [place] [id number] Phone: tel: fax: [facility] Referral ID Status Reason Start Date Expiration Date V isits Requested Visits Authorized [id number] Pending Review 11/21/2024 11/21/2025 1 1 Reason for Visit * Reason Comments Consult * Consultation (Routine) - Authorized Specialty Diagnoses / Procedures Referred By Elen hall Referred To Contact Vascular Surgery Diagnoses Bilateral carotid artery stenosis Daphne Duff, [address] [place] [address] Phone: tel: fax: V[facility] Surgery - [place] [address] [place] [address] Phone: tel: fax: Referral ID Status Reason Start Date Expiration Date Visits Requested Visits Authorized [id number] Authorized Specialty Services Required 10/03/2024 10/03/2025 1 1 Encounter Details Date Type Department Care Team (Late st Contact Info) Description 11/21/2024 4:00 PM EDT Consult Vascular Surgery - [place] [address] [place] [phone] Helga Sprague PA [address] [place] [address] Bilateral carotid artery stenosis Social History Tobacco Use Types Packs/Day Years Used Date Smoking Tobacco: Never Smokeless Tobacco: Never Alcohol Use Standard Drinks/Week Comments No 0 [...] care for your loved ones. For example, children's choir director or elderly care for an older adult? [...] on file Sexual Orientation Not on file documented as of this encounter Last Filed Vital Signs Vital Sign Reading Time Taken Comments Blood Pressure 145/73 11/21/2024 3:49 PM EDT Pulse 63 11/21/2024 3:49 PM EDT Temperature - - Respiratory Rate - - Oxygen Saturation - - Inhaled Oxygen Concentration - - Weight 80.6 kg (177 lb 9.6 oz) 11/21/2024 3:49 P M EDT Height 170.2 cm (5' 7 ) 11/21/2024 3:49 PM EDT Body Mass Index 27.82 11/21/2024 3:49 PM EDT documented in this encounter Progress Notes * Latasha Love MA - 11/21/2024 4:00 PM EDT Vascular US duplex carotid bilateral -10/19/24 EXAM: Ultrasound extracranial arteries. HISTORY: Follow-up bilateral carotid stenoses. COMPARISON: 03/24/2024 CAROTID ULTRASOUND FINDINGS: RIGHT: Peak external carotid artery: 165 cm/sec Peak vertebral: 65 cm/sec and antegrade Carotid artery morphology: No significant change in heterogeneous atherosclerotic plaques in the carotid bulb and proximal ICA. Degree of luminal narrowing is less than 50%. Peak systolic and diastolic velocity common carotid artery: 94/24 cm/sec Peak systolic and diastolic velocity internal carotid artery: 98/41 cm/sec compared with 89/42 cm/spreviously Normal ICA/CCA peak systolic ratio. LEFT: Peak [...] evidence of hemodynamically significant internal carotid stenoses. No significant change compared with 03/24/2024. Patent vertebral arteries. POS - [id number] -------- FINAL REPORT -------- Dictated By: Pao Jackson Dictated Date: 10/19/2024 17:42 ET Assigned Physician: Pao Jackson Reviewed and Electronically Signed By: Pao Jackson Signed Date: 10/19/2024 17:52 ET Workstation ID: [id number] Transcribed By: Self Edit Transcribed Date: 10/19/2024 17:42 ET * JOYCE Villegas - 11/21/2024 4:00 PM EDT PATIENT: Kathy Beltre ENCOUNTER: 11/21/2024 EMRN: [id number] : 1970 PCP: Rohit Mosley MD CHIEF COMPLAINT: Consult HPI: This 54 y.o. female presents for evaluation of carotid disease. Pt has had less than 50% stenosis of bilateral ICAs on carotid duplex for the past 2 years. She does have a reported history of TIAs 10years ago which presented as facial droop, she believes on the left side. She had a workup at that time and evaluation by neurology but no cause was identified. She denies episodes of facial droop since then. She also denies any other neuro deficits at that time or since then including amaurosis fugax, unilateral weakness or paresthesias, slurred speech or word finding issues. She has no claudication. She denies prior surgery on her neck. Denies prior vascular procedures. Denies smoking history. She takes aspirin and a statin daily. PAST MEDICAL HISTORY: Patient Active Problem List Diagnosis Fibroid uterus Jayda's disease Chronic sinusitis Chronic seasonal allergic rhinitis due to pollen HLD (hyperlipidemia) Carotid stenosis Thyroid nodule Chronic constipation Anxiety Hypertension PAST SURGICAL HISTORY: Past Surgical History: Procedure Laterality Date COLONOSCOPY 2018 PROCEDURE: HISTORICAL COLONOSCOPY ENDOMETRIAL ABLATION 04/2016 PROCEDURE: PA ENDOMETRIAL ABLTJ THERMAL W/O HYSTEROSCOPIC GUID MEDICATIONS: Outpatient Medications Marked as Taking for the 11/21/24 encounter (Consult) with JOYCE Villegas Medication Sig Dispense Refill amLODIPine (NORVASC) 5 mg tablet TAKE 1 TABLET BY MOUTH EVERY DAY 90 tablet 0 aspirin 81 mg EC tablet Take 1 tablet (81 mg total) by mouth 1 (one) time each day. atorvastatin (LIPITOR) 40 mg tablet Take 1 tablet (40 mg total) by mouth 1 (one) time each day. 90 tablet 1 cetirizine (ZyrTEC) 10 mg tablet Take 1 tablet (10 mg total) by mouth 1 (one) time each day. clotrimazole-betamethasone (LOTRISONE) 1-0.05 % cream Apply small amout to rash twice a day estradioL (ESTRACE) 0.01 % (0.1 mg/gram) vaginal cream Apply 1G PV nightly for 2 weeks and then 1-2nights a week thereafter fluticasone propionate (FLONASE) 50 mcg/actuation nasal spray Administer 2 sprays into each nostril1 (one) time each day. Shake gently. Before first use, prime pump. After use, clean tip and replacecap. 16 g 5 levothyroxine (SYNTHROID, LEVOTHROID) 100 mcg tablet Take 1 tablet (100 mcg total) by mouth 1 (one)time each day. 90 tablet 1 PARoxetine (PAXIL) 10 mg tablet Take 1 tablet (10 mg total) by mouth 1 (one) time each day in the morning. Take 1 Tablet by mouth every morning for 180 days. - Oral 90 tablet 1 SOCIAL HISTORY: Social History Tobacco Use Smoking status: Never Smokeless tobacco: Never Substance Use Topics Alcohol use: No Drug use: No FAMILY HISTORY: Family History Problem Relation Name Age of Onset No Known Problems Mother Hypertension Father arthritis, psoriasis No Known Problems Brother Breast cancer Aunt ma No Known Problems Sister Colon cancer Maternal Grandfather No Known Problems Maternal Grandmother No Known Problems Paternal Grandfather No Known Problems Paternal Grandmother No Known Problems Uncle No Known Problems Other Blindness Neg Hx Glaucoma, Cataract, macular degeneration, strabismus ALLERGIES: Allergies Allergen Reactions Bactrim [Sulfamethoxazole-Trimethoprim] Hives ROS: GENERAL: No malaise, significant weight loss or fever NECK: No lumps, goiter, pain or significant neck swelling RESPIRATORY: No cough, wheezing or shortness of breath CARDIAC: No chest pain or palpitations GI: No abdominal discomfort MUSCULOSKELETAL: SEE HPI SKIN: No lesions, rash or itching NEURO: No persistent headache, syncope, seizures, weakness or numbness VASCULAR: SEE HPI PHYSICAL EXAM: Vitals: 11/21/24 1549 BP: (!) 145/73 BP Location: Right arm Patient Position: Sitting Pulse: 63 Weight: 80.6 kg (177 lb 9.6 oz) Height: 1.702 m (67 ) General: Alert and oriented x 3, no acute distress, well-nourished HEENT: Normocephalic, atraumatic Neck: No JVD Chest: Respiratory effort normal Cardiac: Regular rate rhythm Abdomen: Soft, nontender, nondistended, no widened aortic pulse Extremities: -Right upper extremity: 2+ radial artery pulses palpable. -Left upper extremity: 2+ radial artery pulses palpable. -Right lower extremity: 2+ DP and PT pulses palpable. No ulcers or gangrene. No edema. -Left lower extremity: 2+ DP and PT pulses palpable. No ulcers or gangrene. No edema. Neuro: Cranial nerves II through XII intact. Motor and sensory function intact and equal bilaterally. Gait normal. DIAGNOSTIC TESTING: Vascular US duplex carotid bilateral -10/19/24 EXAM: Ultrasound extracranial arteries. HISTORY: Follow-up bilateral carotid stenoses. COMPARISON: 03/24/2024 CAROTID ULTRASOUND FINDINGS: RIGHT: Peak external carotid artery: 165 cm/sec Peak vertebral: 65 cm/sec and antegrade Carotid artery morphology: No significant change in heterogeneous atherosclerotic plaques in the carotid bulb and proximal ICA. Degree of luminal narrowing is less than 50%. Peak systolic and diastolic velocity common carotid artery: 94/24 cm/sec Peak systolic and diastolic velocity internal carotid artery: 98/41 cm/sec compared with 89/42 cm/spreviously Normal ICA/CCA peak systolic ratio. LEFT: Peak [...] evidence of hemodynamically significant internal carotid stenoses. No significant change compared with 03/24/2024. Patent vertebral arteries. POS - [id number] -------- FINAL REPORT -------- Dictated By: Pao Jackson Dictated Date: 10/19/2024 17:42 ET Assigned Physician: Pao Jackson Reviewed and Electronically Signed By: Pao Jackson Signed Date: 10/19/2024 17:52 ET Workstation ID: [id number] Transcribed By: Self Edit Transcribed Date: 10/19/2024 17:42 ET Narrative & Impression MRI BRAIN WITH AND WITHOUT CONTRAST Clinical Statement: Brain mass or lesion headaches, white lesions on brain Comparison: MRI of the brain from 10/16/2016 Technique: Multiplanar, multisequence MR images of the brain were obtained prior to and following the uneventful intravenous administration of 15 mL of gadolinium Findings: There is no evidence of diffusion restriction. No intracranial hemorrhage. Mild white matter hyperintensities within the periventricular and supraventricular region consistent with microvascular ischemic changes. A few scattered white matter hyperintense lesions are present throughout thebrain parenchyma which likely represent areas of microvascular ischemic changes. The craniocervicaljunction is normal. The ventricular system is normal in size and morphology. The basilar cisterns are normal. Incidentally noted is a 0.8 x 0.6 cm pineal gland cyst with thin smooth wall enhancement.There is no evidence of abnormal intracranial enhancement. The orbits and globes are within normal l imits. Minimal mucosal thickening within the paranasal sinuses. Trace fluid within the left mastoids. IMPRESSION: Impression: 1. No acute intracranial process. No abnormal intracranial enhancement. 2. 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 No evidence of hydrocephalus -------- FINAL REPORT -------- Dictated By: González Akhtar Dictated Date: 11/17/2024 16:03 ET Assigned Physician: González Akhtar Reviewed and Electronically Signed By: González Akhtar Signed Date: 11/19/2024 18:17 ET Workstation ID: [id number] Transcribed By: Self Edit Transcribed Date: 11/17/2024 16:03 ET Carotid duplex, [place], 03/24/24: EXAM: PA DUPLEX SCAN EXTRACRANIAL ART COMPL BI STUDY COMPARISON:Ultrasound on April 22, 2020 CAROTID ULTRASOUND FINDINGS: RIGHT: Peak external carotid artery: 77 cm/sec Peak vertebral: 60 cm/sec and antegrade Peak common carotid artery: 66 cm/sec Peak internal carotid artery: 88 cm/sec (previously 65 cm/sec) Carotid artery morphology: Atherosclerotic plaques the carotid bifurcation and proximal internal carotid artery. Peak systolic ratio is normal. LEFT: Peak external carotid artery: 85 cm/sec Peak vertebral: 76 cm/sec and antegrade Peak common carotid artery: 76 cm/sec Peak internal carotid artery: 123 cm/sec (previously 109 cm/sec) Carotid artery morphology: Shadowing atherosclerotic plaque at the carotid bifurcation. Peak systolic ratio is normal. Any stenosis measurement is relative to the distal ICA diameters. IMPRESSION: IMPRESSION: No evidence of 50% or greater stenosis in the right or left internal carotid artery. Reference: Updated Recommendations for Carotid Stenosis Interpretation Criteria https://intersocietal.org/wp-content/uploads//IWY-Vklwvjjo-Wjihvib-Commun ication_Updated -Mjieipvhliwyhzc-bzx-Dnyyjwb-Rxnehcmt-Ahbydgwfzwhzom-Onskskaw.pdf I independently reviewed the studies along with the images. ASSESSMENT: 1. Bilateral carotid artery stenosis PLAN: 54 y.o. female with less than 50% stenosis of bilateral ICAs, asymptomatic. We reviewed her imaging. I recommended follow up in 1 year with duplex to be done at [facility], then likely will recommend followup every 2 years. We discussed the natural pathophysiology of carotid disease. I spent 35 minutes in an encounter with this patient, including time spent with patient, chart review, ordering and reviewing diagnostic studies, and documentation. documented in this encounter Plan of Treatment Upcoming Encounters Date Type Department Care Team (Late st Contact Info) Description 01/12/2025 11:00 AM EDT Office Visit [address] [place] [address] Althea Laura PA [address] [place] [address] 04/09/2025 1:00 PM EST Office Visit Internal Medicine - [address] [phone] Daphne Duff, [address] [place] [address] 10/10/2025 10:00 AM EDT Ancillary Procedure [facility] [address] [facility] [address] [place] [address] 11/22/2025 4:00 PM EDT Office Visit Vascular Surgery - [place] [address] [facility] [address] [place] [address] Helga Sprague PA [address] [facility] [address] [place] [address] Scheduled Orders Name Type Priority Associated Diagnoses Orde r Schedule Vascular US duplex carotid bilateral Vascular Ultrasound Routine Bilateral carotid artery stenosis Expected: 10/21/2025, Expires: 11/21/2026 documented as of this encounter Visit Diagnoses Diagnosis Bilateral carotid artery stenosis Occlusion and stenosis of carotid artery without mention of cerebral infarction documented in this encounter Orders Outpatient Referral Count Last Ordered Date Fir st Ordered Date AMB REFERRAL TO VASCULAR SURGERY 1 11/22/19 documented in this encounter Additional Health Concerns Assessment Noted Time PHQ-9 Depression Total Score: 0 10/03/19 10:34 AM EDT documented as of this encounter Care Teams Grain [employer] 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
--- NOTE | 2024-11-24 14:47 | MHC.OFFVIS ---
Intake Visit Reasons: OV- Left 5th metatarsal fx DOI 10/08/24 Intake Note: Kathy is a 54 year old female who presents today for a follow up of her fracture of base of fifth metatarsal bone of left foot, DOI: 10/08/24. Patient reports she has not had pain with ambulation, standing, or weight bearing. Allergies sulfamethoxazole (From Bactrim) Adverse Reaction (Severe, Verified 11/03/24 14:20) sweeling in face trimethoprim (From Bactrim) Adverse Reaction (Severe, Verified 11/03/24 14:20) sweeling in face HPI HPI OV- Left 5th metatarsal fx DOI 10/08/24: Details: Kathy is a 54 year old female who presents today for a follow up of her fracture of base of fifth metatarsal bone of left foot, DOI: 10/08/24. Patient reports she has not had pain with ambulation, standing, or weight bearing. Patient reports she has been adherent to wearing boot while weight-bearing. No other acute complaints or concerns at this time. 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 Review of Systems Const All systems reviewed & are unremarkable except as noted in HPI and below Physical Exam Extrem Other: Patient's left foot normal to inspection No erythema, ecchymosis, edema noted No lacerations, abrasions, open areas No evidence of infection Patient reports no tenderness to palpation of the left 5th metatarsal base Range of motion of the left foot full and intact Distal sensation intact Capillary refill brisk Results Reviewed Results Reviewed: X-rays obtained in the office today and independently reviewed by me, Adan Up PA-C, demonstrate nondisplaced fracture of the left 5th metatarsal base, not extending into the joint between the 4th and 5th metatarsal, with evidence of interval bony healing. Assessment & Plan Assessment & Plan (1) Fracture of base of fifth metatarsal bone of left foot: Code(s): S92.352A - Displaced fracture of fifth metatarsal bone, left foot, initial encounter for closed fracture Category: Medical Plan 1. Left 5th metatarsal base fracture Date of injury 10/08/2024 Patient appears to be recovering well from her injury Patient is educated about the typical recovery course At this time, patient is informed that she should continue wearing the walking boot to allow for further healing of her fracture, and is educated that these fractures can take a significant amount of time to heal fully Patient can however begin to increase the amount of time she is weight-bearing in the boot Patient understands this and is amenable to this plan Follow-up in 4-6 weeks Orders: Orders XR foot LT min 3V Today M79.672 - Pain in left foot Coding Level of Care Code Global (56319) Diagnoses Fracture of base of fifth metatarsal bone of left foot S92.352A
== END 2024-11-24 15:00 | disposition home or self-care (01) ==
LOC: HO.HOS 14:37
PROVIDERS: PCP Internal Medicine
DX: S92.352A Displaced fracture of fifth metatarsal bone, left foot, initial encounter for closed fracture (principal)
CPT/HCPCS: 99213

== ENCOUNTER → 2024-11-24 14:39 | Outpatient (BNV) | payer OTHER, SELFPAY | PROVIDERS: Visit Provider Specialist | DX: S92.352D Displaced fracture of fifth metatarsal bone, left foot, subsequent encounter for fracture with routine healing (principal) | CPT/HCPCS: 73630 ==